=== PATIENT | female | born 1995 | race Caucasian/White ===

== ENCOUNTER → 2017-06-23 | Outpatient (CLI) | payer BC ==
[~2017-06-23] MED LIST: ACET325T14 PO
== END ==
LOC: STAR 15:04
PROVIDERS: ATTEND Orthopaedic Surgery
DX: Z02.9 Encounter for administrative examinations, unspecified (principal)

== ENCOUNTER 2017-06-27 10:01 | Day surgery (SDC) | payer BC ==
[~2017-06-27] VITALS: Ht 160 cm; Wt 53.3 kg
[2017-06-27] MEDS ORDERED: EPINEPHRINE 1 MG/ML, 1ML ONE (10:47)
[2017-06-27] MEDS ORDERED: BUPIVACAINE/PF 0.5% ONE (10:47)
[2017-06-27 11:02] VITALS: BP 122/69
[2017-06-27] MEDS ORDERED: LACTATED RINGERS 1,000 ML IV SCH (11:04)
[2017-06-27 11:23] LABS: HCG UR OBC PASS
[2017-06-27] MEDS ORDERED: MIDAZOLAM 1 MG/ML, 2ML ONE (15:18)
[2017-06-27] MEDS ORDERED: FENTANYL PF 250 MCG/5ML ONE (15:19)
[2017-06-27] MEDS ORDERED: PROPOFOL 10 MG/ML, 20ML ONE (15:50)
[2017-06-27] MEDS ORDERED: DEXAMETHASONE 4 MG/ML, 1ML ONE (15:50)
[2017-06-27] MEDS ORDERED: ONDANSETRON 2MG/ML, 2ML ONE (15:50)
[2017-06-27] MEDS ORDERED: LIDOCAINE 1%, 20ML ONE (15:50)
[2017-06-27] MEDS ORDERED: CEFAZOLIN 1,000 MG ONE (15:50)
[2017-06-27] MEDS ORDERED: BUPIVACAINE/PF-EPI 0.5% 1:200K IM ONE (16:14)
[2017-06-27] MEDS ORDERED: PROMETHAZINE 25 MG/ML, 1ML IV PRN (16:30)
[2017-06-27] MEDS ORDERED: OXYcodone 5 MG/5 ML ORAL.SOL UDC PO PRN (16:30)
[2017-06-27] MEDS ORDERED: ACETAMINOPHEN 325 MG TABLET PO PRN (16:30)
[2017-06-27] MEDS ORDERED: KETOROLAC 30 MG/1 ML IV PRN (16:30)
[2017-06-27] MEDS ORDERED: ACETAMINOPHEN 650 MG/20.3 ML UDC ONE (16:47)
[2017-06-27] MEDS ORDERED: FENTANYL PF 100 MCG/2ML ONE (16:47)
[2017-06-27] MEDS ORDERED: OXYcodone 5 MG/5 ML ORAL.SOL UDC ONE (16:47)
[2017-06-27] MEDS: FENTANYL PF 100 MCG/2ML IV PRN ×2 (16:50→17:05)
[2017-06-27] MEDS ORDERED: HYDROmorphone 2 MG/ML, 1ML ONE (17:01)
[2017-06-27] MEDS: HYDROmorphone 1 MG/ML, 1ML IV PRN ×4 (17:05→17:28)
== END 2017-06-27 19:35 ==
LOC: OUT 10:01
PROVIDERS: ATTEND Orthopaedic Surgery
DX: T84.84XA Pain due to internal orthopedic prosthetic devices, implants and grafts, initial encounter (principal); Y83.8 Other surgical procedures as the cause of abnormal reaction of the patient, or of later complication, without mention of misadventure at the time of the procedure; Y92.89 Other specified places as the place of occurrence of the external cause
CPT/HCPCS: 20680; 73650; 76000; 81025; J0171; J0690; J1100; J1170; J2250; J2405; J2704; J3010; J3490; J7120